=== PATIENT | male | born 1960 | race Caucasian/White ===

== ENCOUNTER 2021-05-11 05:51 | Inpatient (IN) ==
[2021-05-11] MEDS ORDERED: Heparin - STEMI 5,000 UNITS/ML 1 ml VIAL IV ONE (06:01)
[2021-05-11] MEDS ORDERED: NS 0.9% 1000 ml BAG 1,000 ML IV ONE (06:01)
[2021-05-11] MEDS ORDERED: Ondansetron 4 mg VIAL 2 MG/ML 2 ml VIAL ONE ×2 (06:09→15:44)
[2021-05-11] MEDS ORDERED: Ondansetron 4 mg VIAL 2 MG/ML 2 ml VIAL IV ONE (06:10)
[2021-05-11] MEDS ORDERED: Morphine 4 MG/ML VIAL (1 ml) IV ONE (06:12)
[2021-05-11 06:20] LABS: ABS Basophils 0.1 10^3/ul (0-0.2); ABS Eosinophils 0.1 10^3/ul (0-0.6); ABS Neutrophils 4.3 10^3/ul (1.5-7.7); Eosinophil % 1.2 %; Hematocrit 50 % (42-52); Hemoglobin 16.5 g/dL (14.0-18.0); Lymphocyte % 35.2 %; Mean Corpuscular HGB Conc 33 g/dL (31-36); Mean Corpuscular Hemoglobin 33 pg (27-31); Mean Corpuscular Volume 101 fL (80-94); Mean Platelet Volume 8.8 fL (7.4-10.4); Nucleated Red Blood Cells % 0.1; Platelet Count 256 10^3/uL (150-450); Red Blood Count 4.96 10^6 /uL (4.18-5.48); Red Cell Distribution Width 16 % (10-15); White Blood Count 8.4 10^3/uL (3.5-10.8)
[2021-05-11] MEDS ORDERED: Metoprolol Tartrate 5 mg VIAL 5 ml VIAL (1 mg/ml) IV ONE (06:21)
[2021-05-11] MEDS ORDERED: Metoprolol Tartrate 5 mg VIAL 5 ml VIAL (1 mg/ml) ONE (06:22)
[2021-05-11] MEDS ORDERED: Iohexol 350 (CONTRAST) 200 ML MDV IV ONE ×2 (06:23→06:40)
[2021-05-11] MEDS ORDERED: nitroGLYCERIN DRIP 25,000 MCG/250 ML BTL ONE (06:23)
[2021-05-11] MEDS ORDERED: Heparin 2 UNITS/ML 1000 mls 2,000 ML IV ONE (06:23)
[2021-05-11] MEDS ORDERED: VERAPAMIL 2.5 MG/ML 2 ML VIAL ** 5 mg/2 ml ONE (06:23)
[2021-05-11] MEDS ORDERED: Heparin 1,000 UNIT/ML 10 ml (10,000 UNITS) CATHLAB/DIALYSIS ONE (06:23)
[2021-05-11] MEDS ORDERED: Lidocaine 1% VIAL 10 MG/ML VIAL ONE (06:23)
[2021-05-11] MEDS ORDERED: fentaNYL 100 mcg/2 ml 50 MCG/ML VIAL ONE (06:25)
[2021-05-11] MEDS ORDERED: Midazolam 5 mg/5 ml VIAL 1 mg/ml 5 ml VIAL (5 mg) ONE (06:25)
[2021-05-11 06:34] LABS: Activated Partial Thrombo Time 27.3 seconds (26.0-38.0); INR 1.62 (0.86-1.15)
[2021-05-11] MEDS ORDERED: Diltiazem (ADVAN VIAL) 100 MG/100 ML ADDV.BAG IV ONE (06:36)
[2021-05-11 06:52] LABS: Albumin 3.8 g/dL (3.2-5.2); Anion Gap 10 mmol/L (2-11); CO2 Carbon Dioxide 24 mmol/L (22-32); Calcium 9.1 mg/dL (8.6-10.3); Chloride 102 mmol/L (101-111); Potassium 4.2 mmol/L (3.5-5.0); Sodium 136 mmol/L (135-145)
[2021-05-11 06:58] LABS: ALT 49 U/L (7-52); AST 59 U/L (13-39); Albumin/Globulin Ratio 1.1 (1-3); Alkaline Phosphatase 296 U/L (35-149); Blood Urea Nitrogen 18 mg/dL (6-24); EGFR African American 77.2 (>60); EGFR Non-African American 63.8 (>60); Globulin 3.5 g/dL (2-4); Glucose 125 mg/dL (70-100); Total Protein 7.3 g/dL (6.4-8.9)
[2021-05-11] MEDS ORDERED: Diltiazem (ADVAN VIAL) 100 MG/100 ML ADDV.BAG IV SCH (07:00)
[2021-05-11 07:11] LABS: Troponin I 0.33 ng/mL (<0.03)
[2021-05-11] MEDS ORDERED: Heparin DRIP 25,000 UNITS BAG 25,000 UNITS/500 ML BAG IV SCH (07:45)
[2021-05-11] MEDS ORDERED: Heparin 5000 UNITS/ML 1 mL VIAL IV SCH (08:00)
[2021-05-11 08:49] LABS: EGFR African American 80.4 (>60); EGFR Non-African American 66.4 (>60)
[2021-05-11] MEDS ORDERED: Perflutren Lipid Microsphere 3 ML VIAL ONE (08:54)
[2021-05-11] MEDS ORDERED: Ondansetron 4 mg VIAL 2 MG/ML 2 ml VIAL IV PRN (15:41)
[2021-05-11] MEDS: Pantoprazole VIAL 40 MG VIAL IV SCH (15:50)
[2021-05-11] MEDS ORDERED: Furosemide 20 mg/2 ml IV VIAL IV ONE (16:04)
[2021-05-11 16:10] LABS: C Reactive Protein 15.82 mg/L (<8.01)
[2021-05-11] MEDS ORDERED: Nicotine PATCH 14 MG/24 HR PATCH ONE (18:19)
[2021-05-11] MEDS: Nicotine PATCH 14 MG/24 HR PATCH TRANSDERM SCH (18:20)
[2021-05-11 19:04] LABS: Erythrocyte Sed Rate 5 mm/Hr (0-19)
[2021-05-12 05:27] LABS: Albumin 3.1 g/dL (3.2-5.2); CO2 Carbon Dioxide 16 mmol/L (22-32); Calcium 8.3 mg/dL (8.6-10.3); Chloride 102 mmol/L (101-111); Magnesium 1.6 mg/dL (1.9-2.7); Sodium 129 mmol/L (135-145)
[2021-05-12 05:33] LABS: ALT 74 U/L (7-52); Alkaline Phosphatase 245 U/L (35-149); Blood Urea Nitrogen 21 mg/dL (6-24); EGFR African American 88.4 (>60); EGFR Non-African American 73.1 (>60); Globulin 3.1 g/dL (2-4); Glucose 88 mg/dL (70-100); Phosphorus 4.2 mg/dL (2.5-5.0); Total Protein 6.2 g/dL (6.4-8.9)
[2021-05-12 05:46] LABS: INR 6.87 (0.86-1.15)
[2021-05-12 06:01] LABS: ABS Basophils 0.1 10^3/ul (0-0.2); ABS Eosinophils 0.1 10^3/ul (0-0.6); ABS Lymphocytes 2.5 10^3/ul (1.0-4.8); ABS Monocytes 1.1 10^3/ul (0-0.8); ABS Neutrophils 4.4 10^3/ul (1.5-7.7); Eosinophil % 1.2 %; Hematocrit 47 % (42-52); Hemoglobin 15.3 g/dL (14.0-18.0); Mean Corpuscular HGB Conc 33 g/dL (31-36); Mean Corpuscular Hemoglobin 33 pg (27-31); Mean Corpuscular Volume 101 fL (80-94); Mean Platelet Volume 9.3 fL (7.4-10.4); Nucleated Red Blood Cells % 0.2; Platelet Count 230 10^3/uL (150-450); Red Cell Distribution Width 16 % (10-15); White Blood Count 8.2 10^3/uL (3.5-10.8)
[2021-05-12] MEDS ORDERED: Magnesium Sulfate IV 3 GM in NS 0.9% 100 ml BAG 100 ML IVPB ONE (07:30)
[2021-05-12 07:50] LABS: Anion Gap 11 mmol/L (2-11)
[2021-05-12] MEDS: Pantoprazole VIAL 40 MG VIAL IV SCH (08:31)
[2021-05-12] MEDS: Nicotine PATCH 14 MG/24 HR PATCH TRANSDERM SCH (08:31)
[2021-05-12] MEDS ORDERED: fentaNYL 100 mcg/2 ml 50 MCG/ML VIAL ONE (08:54)
[2021-05-12] MEDS ORDERED: Midazolam 5 mg/5 ml VIAL 1 mg/ml 5 ml VIAL (5 mg) ONE (08:54)
[2021-05-12] MEDS ORDERED: Naloxone 0.4 mg VIAL 0.4 mg/ml 1 ml VIAL ONE (08:54)
[2021-05-12] MEDS ORDERED: Flumazenil 0.5 mg/5 ml 0.1 MG/ML 5 ml VIAL ONE (08:55)
[2021-05-12 10:29] LABS: AST Redraw 203 U/L (13-39); Potassium Redraw 4.4 mmol/L (3.5-5.0)
[2021-05-12] MEDS ORDERED: Iohexol 350 (CONTRAST) 500 ML MDV IV ONE (12:24)
[2021-05-12 12:35] LABS: Troponin I 15.73 ng/mL (<0.03)
[2021-05-12 13:02] LABS: Total Iron Binding Capacity 463 mcg/dL (250-450); Transferrin 331 mg/dL (203-362)
[2021-05-12 13:17] LABS: Folate > 20.00 ng/mL (5.90-24.80); Vitamin B12 1049 pg/mL (180-914)
[2021-05-12 15:11] LABS: Rheumatoid Factor < 10 IU/mL (<15); Total Iron Binding Capacity 465 mcg/dL (250-450); Transferrin 332 mg/dL (203-362)
[2021-05-12] MEDS ORDERED: Furosemide 40 mg/4 ml IV VIAL IV ONE (16:29)
[2021-05-12 19:59] LABS: Troponin I 16.54 ng/mL (<0.03)
[2021-05-13 05:34] LABS: ABS Basophils 0.1 10^3/ul (0-0.2); ABS Eosinophils 0.1 10^3/ul (0-0.6); ABS Monocytes 0.9 10^3/ul (0-0.8); ABS Neutrophils 4.4 10^3/ul (1.5-7.7); Eosinophil % 1.1 %; Hematocrit 43 % (42-52); Hemoglobin 14.8 g/dL (14.0-18.0); Lymphocyte % 27.2 %; Mean Corpuscular HGB Conc 35 g/dL (31-36); Mean Corpuscular Hemoglobin 34 pg (27-31); Mean Corpuscular Volume 98 fL (80-94); Mean Platelet Volume 8.6 fL (7.4-10.4); Nucleated Red Blood Cells % 0.3; Platelet Count 222 10^3/uL (150-450); Red Blood Count 4.37 10^6 /uL (4.18-5.48); Red Cell Distribution Width 16 % (10-15); White Blood Count 7.4 10^3/uL (3.5-10.8)
[2021-05-13 05:40] LABS: ALT 71 U/L (7-52); AST 132 U/L (13-39); Albumin/Globulin Ratio 1.1 (1-3); Alkaline Phosphatase 223 U/L (35-149); Anion Gap 8 mmol/L (2-11); Blood Urea Nitrogen 20 mg/dL (6-24); CO2 Carbon Dioxide 24 mmol/L (22-32); Calcium 7.9 mg/dL (8.6-10.3); Chloride 101 mmol/L (101-111); EGFR African American 100.6 (>60); EGFR Non-African American 83.2 (>60); Globulin 2.7 g/dL (2-4); Glucose 102 mg/dL (70-100); Magnesium 1.7 mg/dL (1.9-2.7); Phosphorus 3.4 mg/dL (2.5-5.0); Sodium 133 mmol/L (135-145); Total Protein 5.7 g/dL (6.4-8.9)
[2021-05-13 05:45] LABS: INR 3.04 (0.86-1.15)
[2021-05-13] MEDS ORDERED: Magnesium Sulfate IV 3 GM in NS 0.9% 100 ml BAG 100 ML IVPB ONE (07:45)
[2021-05-13] MEDS ORDERED: Furosemide 40 mg/4 ml IV VIAL IV ONE (08:23)
[2021-05-13] MEDS: Pantoprazole VIAL 40 MG VIAL IV SCH (08:27)
[2021-05-13] MEDS: Nicotine PATCH 14 MG/24 HR PATCH TRANSDERM SCH (08:27)
[2021-05-13 09:13] LABS: Troponin I 9.36 ng/mL (<0.03)
[2021-05-13] MEDS: Psyllium PAK PO PRN (12:23)
[2021-05-14 06:28] LABS: ABS Eosinophils 0.1 10^3/ul (0-0.6); ABS Lymphocytes 1.9 10^3/ul (1.0-4.8); ABS Neutrophils 3.3 10^3/ul (1.5-7.7); Eosinophil % 1.3 %; Hematocrit 42 % (42-52); Lymphocyte % 29.9 %; Mean Corpuscular HGB Conc 33 g/dL (31-36); Mean Corpuscular Hemoglobin 34 pg (27-31); Mean Corpuscular Volume 101 fL (80-94); Mean Platelet Volume 8.7 fL (7.4-10.4); Nucleated Red Blood Cells % 0.1; Platelet Count 240 10^3/uL (150-450); Red Blood Count 4.18 10^6 /uL (4.18-5.48); Red Cell Distribution Width 16 % (10-15); White Blood Count 6.3 10^3/uL (3.5-10.8)
[2021-05-14 06:32] LABS: INR 2.33 (0.86-1.15)
[2021-05-14 06:48] LABS: Albumin 3.2 g/dL (3.2-5.2); Albumin/Globulin Ratio 1.1 (1-3); EGFR African American 110.1 (>60); Globulin 2.9 g/dL (2-4); Magnesium 1.9 mg/dL (1.9-2.7); Total Protein 6.1 g/dL (6.4-8.9)
[2021-05-14] MEDS: Nicotine PATCH 14 MG/24 HR PATCH TRANSDERM SCH (08:40)
[2021-05-14] MEDS ORDERED: Saline NASAL SPRAY 0.65% BTL BOTH NARES PRN (10:52)
[2021-05-14 16:22] LABS: Anti SSA/RO Antibody <0.2 U; JO-1 Antibody <0.2 U; Myeloperoxidase Antibody <0.2 U; SS-B/La Antibody <0.2 U; Sm (Smith) IgG Antibody <0.2 U
[2021-05-14 16:28] LABS: Calcium 8.5 mg/dL (8.6-10.3); EGFR African American 94.7 (>60); EGFR Non-African American 78.3 (>60); Potassium 4.5 mmol/L (3.5-5.0)
[2021-05-15 07:14] LABS: ABS Basophils 0.1 10^3/ul (0-0.2); ABS Eosinophils 0.1 10^3/ul (0-0.6); ABS Lymphocytes 1.9 10^3/ul (1.0-4.8); ABS Monocytes 1.1 10^3/ul (0-0.8); Eosinophil % 1.6 %; Hematocrit 42 % (42-52); Hemoglobin 14.1 g/dL (14.0-18.0); Lymphocyte % 31.1 %; Mean Corpuscular HGB Conc 33 g/dL (31-36); Mean Corpuscular Hemoglobin 33 pg (27-31); Mean Corpuscular Volume 99 fL (80-94); Mean Platelet Volume 8.6 fL (7.4-10.4); Nucleated Red Blood Cells % 0.1; Platelet Count 240 10^3/uL (150-450); Red Blood Count 4.29 10^6 /uL (4.18-5.48); Red Cell Distribution Width 16 % (10-15); White Blood Count 6.2 10^3/uL (3.5-10.8)
[2021-05-15 07:21] LABS: EGFR African American 107.3 (>60); EGFR Non-African American 88.6 (>60); Magnesium 1.9 mg/dL (1.9-2.7)
[2021-05-15] MEDS: Psyllium PAK PO PRN (08:25)
[2021-05-15] MEDS: Nicotine PATCH 14 MG/24 HR PATCH TRANSDERM SCH (08:26)
[2021-05-15 10:52] LABS: Hepatitis B Surface Antigen Nonreactive (Nonreactive)
[2021-05-15 10:57] LABS: Hepatitis A Ab IgM Negative (Negative)
[2021-05-15 10:58] LABS: Hepatitis B Core IgM Nonreactive (Nonreactive)
[2021-05-15 11:19] LABS: Hepatitis C Antibody Reactive (Negative)
[2021-05-16 05:42] LABS: ABS Eosinophils 0.1 10^3/ul (0-0.6); ABS Lymphocytes 1.7 10^3/ul (1.0-4.8); ABS Monocytes 0.9 10^3/ul (0-0.8); ABS Neutrophils 2.2 10^3/ul (1.5-7.7); Hematocrit 43 % (42-52); Hemoglobin 14.3 g/dL (14.0-18.0); Lymphocyte % 34.9 %; Mean Corpuscular HGB Conc 33 g/dL (31-36); Mean Corpuscular Hemoglobin 33 pg (27-31); Mean Corpuscular Volume 100 fL (80-94); Mean Platelet Volume 8.4 fL (7.4-10.4); Nucleated Red Blood Cells % 0.2; Platelet Count 256 10^3/uL (150-450); Red Blood Count 4.32 10^6 /uL (4.18-5.48); Red Cell Distribution Width 15 % (10-15)
[2021-05-16] MEDS: Nicotine PATCH 14 MG/24 HR PATCH TRANSDERM SCH (09:27)
[2021-05-16 10:08] LABS: INR 1.69 (0.86-1.15)
[2021-05-16 10:15] LABS: Albumin 3.7 g/dL (3.2-5.2); Albumin/Globulin Ratio 1.1 (1-3); Calcium 9.2 mg/dL (8.6-10.3); EGFR African American 100.6 (>60); EGFR Non-African American 83.2 (>60); Globulin 3.3 g/dL (2-4); Magnesium 1.9 mg/dL (1.9-2.7)
[2021-05-16 11:37] LABS: Potassium 4.9 mmol/L (3.5-5.0)
[2021-05-16] MEDS ORDERED: Nicotine PATCH 14 MG/24 HR PATCH TRANSDERM ONE (12:04)
[2021-05-16] MEDS: Psyllium PAK PO PRN (20:57)
[2021-05-17 06:48] LABS: Albumin 3.8 g/dL (3.2-5.2); Albumin/Globulin Ratio 1.1 (1-3); Calcium 8.9 mg/dL (8.6-10.3); EGFR African American 104.5 (>60); EGFR Non-African American 86.4 (>60); Globulin 3.4 g/dL (2-4); Magnesium 1.9 mg/dL (1.9-2.7); Potassium 4.7 mmol/L (3.5-5.0); Total Bilirubin 0.8 mg/dL (0.2-1.0); Total Protein 7.2 g/dL (6.4-8.9)
[2021-05-17] MEDS: Nicotine PATCH 14 MG/24 HR PATCH TRANSDERM SCH (08:29)
[2021-05-17] MEDS ORDERED: COVID-19 VACCINE, AD26(JANSSEN)/PF 0.5 ML IM ONE (17:00)
[2021-05-17] MEDS: Psyllium PAK PO PRN (20:31)
[2021-05-18] MEDS: Nicotine PATCH 14 MG/24 HR PATCH TRANSDERM SCH (08:57)
[2021-05-18 15:09] VITALS: BP 127/83
== END 2021-05-18 18:00 | disposition home or self-care (01) | DRG 192 ==
LOC: ED 05:51 → CHICATH 06:37 → ICU 08:04 → MEDTELE 05-13 14:42
PROVIDERS: ADMIT Internal Medicine Cardiovascular Disease; ATTEND Hospitalist

== ENCOUNTER 2021-11-06 06:00 | Observation (INO) ==
[2021-11-06] MEDS ORDERED: Nitroglycerin 0.3 mg TAB SL ONE (06:25)
[2021-11-06 06:34] LABS: ABS Lymphocytes 1.4 10^3/ul (1.0-4.8); ABS Monocytes 0.8 10^3/ul (0-0.8); ABS Neutrophils 6.8 10^3/ul (1.5-7.7); Eosinophil % 0.5 %; Hematocrit 37 % (42-52); Lymphocyte % 15.8 %; Mean Corpuscular HGB Conc 35 g/dL (31-36); Mean Corpuscular Hemoglobin 36 pg (27-31); Mean Corpuscular Volume 103 fL (80-94); Mean Platelet Volume 7.3 fL (7.4-10.4); Platelet Count 278 10^3/uL (150-450); Red Blood Count 3.64 10^6 /uL (4.18-5.48); Red Cell Distribution Width 13 % (10-15); White Blood Count 9.1 10^3/uL (3.5-10.8)
[2021-11-06 06:39] LABS: INR 1.2 (0.86-1.15)
[2021-11-06 06:52] LABS: ALT 39 U/L (7-52); AST 36 U/L (13-39); Albumin 4.3 g/dL (3.2-5.2); Albumin/Globulin Ratio 1.3 (1-3); Alkaline Phosphatase 115 U/L (35-149); Anion Gap 9 mmol/L (2-11); Blood Urea Nitrogen 18 mg/dL (6-24); CO2 Carbon Dioxide 24 mmol/L (22-32); Calcium 9.4 mg/dL (8.6-10.3); Chloride 100 mmol/L (101-111); Globulin 3.4 g/dL (2-4); Glucose 113 mg/dL (70-100); Potassium 4.4 mmol/L (3.5-5.0); Sodium 133 mmol/L (135-145); Total Protein 7.7 g/dL (6.4-8.9); eGFR CKD-EPI 64.5 (>60)
[2021-11-06 07:02] LABS: Troponin I 0.19 ng/mL (<0.03)
[2021-11-06 07:07] LABS: TSH Ultra Thyroid Stim Horm 7.81 mcIU/mL (0.34-5.60)
[2021-11-06 09:34] LABS: Troponin I 0.18 ng/mL (<0.03)
[2021-11-06 10:40] LABS: Rapid COVID-19 Molecular Undetected (Undetected)
[2021-11-06 12:36] LABS: Cholesterol 185 mg/dL; HDL Cholesterol 40.7 mg/dL; Triglycerides 591 mg/dL
[2021-11-06 12:45] LABS: Troponin I 0.21 ng/mL (<0.03)
[2021-11-06 12:52] LABS: LDL Cholesterol Direct 69 mg/dL
[2021-11-06] MEDS: Nicotine PATCH 21 MG/24 HR PATCH TRANSDERM SCH (21:44)
[2021-11-07 06:09] LABS: ABS Basophils 0.1 10^3/ul (0-0.2); ABS Eosinophils 0.1 10^3/ul (0-0.6); ABS Lymphocytes 2.4 10^3/ul (1.0-4.8); ABS Monocytes 0.8 10^3/ul (0-0.8); ABS Neutrophils 4.7 10^3/ul (1.5-7.7); Eosinophil % 1.5 %; Hematocrit 40 % (42-52); Hemoglobin 13.9 g/dL (14.0-18.0); Lymphocyte % 29.5 %; Mean Corpuscular HGB Conc 35 g/dL (31-36); Mean Corpuscular Hemoglobin 35 pg (27-31); Mean Corpuscular Volume 102 fL (80-94); Mean Platelet Volume 7.2 fL (7.4-10.4); Nucleated Red Blood Cells % 0.1; Platelet Count 279 10^3/uL (150-450); Red Blood Count 3.97 10^6 /uL (4.18-5.48); Red Cell Distribution Width 14 % (10-15); White Blood Count 8.1 10^3/uL (3.5-10.8)
[2021-11-07 06:27] LABS: Calcium 9.5 mg/dL (8.6-10.3); Potassium 4.8 mmol/L (3.5-5.0); eGFR CKD-EPI 74.9 (>60)
[2021-11-07] MEDS ORDERED: Regadenoson 0.4 MG/5 ML SYRINGE ONE ×2 (12:38→12:49)
[2021-11-07] MEDS: Nicotine PATCH 21 MG/24 HR PATCH TRANSDERM SCH (14:54)
[2021-11-07 16:10] VITALS: BP 125/74
== END 2021-11-07 18:05 | disposition home or self-care (01) ==
LOC: ED 06:00 → EDHOLD 06:00 → MEDTELE 12:04
PROVIDERS: ADMIT Physician Assistant; ATTEND Hospitalist